=== PATIENT | female | born 1995 | race Caucasian/White ===

== ENCOUNTER → 2017-12-24 | Outpatient (REF) | payer BC | LOC: M LAB REF 12-25 13:15 | DX: J02.9 Acute pharyngitis, unspecified (principal) | CPT/HCPCS: 87081 ==

== ENCOUNTER 2018-06-24 12:23 | Emergency (ER) | payer BC, OTHER ==
[2018-06-24] MEDS: KETOROLAC 30 MG/ML VIAL (J1885) IV (13:15)
[2018-06-24] MEDS: NS 1,000 ML IV (13:15)
[2018-06-24] MEDS: ONDANSETRON 4MG/2ML VIAL (J2405) IV (13:15)
[2018-06-24 13:31] LABS: KETONE, URINE AUTO RFX NEGATIVE (NEGATIVE); LEUKOCYTE ESTERASE UR AUTO RFX NEGATIVE (NEGATIVE); NITRITE, URINE AUTO RFX NEGATIVE (NEGATIVE); RBC, URINE AUTO RFX 2 /HPF (0-3); SQUAM EPITHELIAL CELL UR AURFX 1 /HPF (0-6); WBC, URINE AUTO RFX 2 /HPF (0-3)
[2018-06-24 13:40] LABS: BASO # 0.1 10^3/uL (0.0-0.2); BASO % 0.6 % (0.0-1.0); EOS # 0.1 10^3/uL (0.0-0.50); EOS % 1.3 % (0.0-3.0); HEMATOCRIT 40.5 % (36.0-47.0); HEMOGLOBIN 13.3 g/dl (12.0-15.5); IMMATURE GRANULOCYTE % 0.5 % (0-3.0); LYMPH # 3.6 10^3/uL (1.5-6.5); LYMPH % 32.3 % (24.0-44.0); MEAN CORPUSCULAR HEMOGLOBIN 28.2 pg (27.0-33.0); MEAN CORPUSCULAR HGB CONC 32.8 g/dl (32.0-36.5); MEAN CORPUSCULAR VOLUME 85.8 fl (80.0-96.0); MONO # 0.7 10^3/uL (0.0-0.8); MONO % 5.9 % (0.0-5.0); NEUTROPHILS # 6.6 10^3/uL (1.8-7.7); NEUTROPHILS % 59.4 % (36.0-66.0); PLATELET COUNT, AUTOMATED 452 10^3/uL (150-450); RED BLOOD COUNT 4.72 10^6/uL (4.00-5.40); RED CELL DISTRIBUTION WIDTH 12.6 % (11.5-14.5); WHITE BLOOD COUNT 11.1 10^3/uL (4.0-10.0)
[2018-06-24 14:09] LABS: ALBUMIN 3.7 GM/DL (3.2-5.2); ALBUMIN/GLOBULIN RATIO 0.97 (1.00-1.93); ALKALINE PHOSPHATASE 78 U/L (45-117); ALT/SGPT 23 U/L (12-78); AMYLASE 25 U/L (25-115); ANION GAP 6 MEQ/L (8-16); AST/SGOT 12 U/L (7-37); BILIRUBIN,DIRECT < 0.1 MG/DL (0.0-0.2); BILIRUBIN,TOTAL 0.3 MG/DL (0.2-1.0); BLOOD UREA NITROGEN 13 MG/DL (7-18); CALCIUM LEVEL 8.9 MG/DL (8.5-10.1); CARBON DIOXIDE LEVEL 27 MEQ/L (21-32); CHLORIDE LEVEL 106 MEQ/L (98-107); CREATININE FOR GFR 0.82 MG/DL (0.55-1.30); GLOMERULAR FILTRATION RATE > 60.0 (>60); GLUCOSE, FASTING 93 MG/DL (70-100); LIPASE 103 U/L (73-393); POTASSIUM SERUM 4.5 MEQ/L (3.5-5.1); SODIUM LEVEL 139 MEQ/L (136-145); TOTAL PROTEIN 7.5 GM/DL (6.4-8.2)
[2018-06-24] MEDS ORDERED: ISOVUE-370 76% 100ML VIAL (Q9967) As Ordered (14:19)
== END 2018-06-24 15:20 | disposition home or self-care (01) ==
LOC: M ED 12:23
DX: R10.11 Right upper quadrant pain (principal); R11.2 Nausea with vomiting, unspecified; K76.0 Fatty (change of) liver, not elsewhere classified; R51 Headache; Z79.899 Other long term (current) drug therapy
CPT/HCPCS: J2405

== ENCOUNTER → 2019-06-18 | Outpatient (CLI) | payer BC, OTHER ==
[~2019-06-18] MED LIST: ZONI50CA3
--- NOTE | 2019-06-18 14:34 | REP ---
MRI cervical spine: 06/18/2019. Indication: Neck pain. Comparison: None. Technique: Multiplanar short and long TR sequences of the cervical spine were obtained without IV Gadolinium. Findings: There is straightening of the cervical lordosis. No worrisome marrow or cord signal is present. The craniocervical junction is unremarkable. There are no disc herniations or areas of significant spinal canal / neural foraminal narrowing throughout the cervical spine. Impression: Straightening of the cervical lordosis which may be indicative of musculoskeletal strain injury. The study is otherwise unremarkable. Electronically Signed by Mark Flores DO 06/18/2019 02:25 P
== END ==
LOC: M PLARAD 11:24
PROVIDERS: ATTEND Psychiatry & Neurology Neurology
DX: M54.2 Cervicalgia (principal); M54.81 Occipital neuralgia; M43.8X2 Other specified deforming dorsopathies, cervical region

== ENCOUNTER → 2020-07-11 | Outpatient (REF) | payer BC, OTHER ==
[~2020-07-11] MED LIST changes: +ZONI50CA11; -ZONI50CA3
[2020-07-11 14:25] LABS: FREE T4 0.96 NG/DL (0.76-1.46); PROLACTIN 7.6 NG/ML; THYROID STIMULATING HORMONE 3.81 uIU/ML (0.358-3.740)
== END ==
LOC: M PLALAB 11:05
PROVIDERS: ATTEND Obstetrics & Gynecology
DX: N92.6 Irregular menstruation, unspecified (principal)
CPT/HCPCS: 36415; 82627; 83498; 84146; 84402; 84403; 84439; 84443; G0123

== ENCOUNTER → 2020-09-21 | Outpatient (REF) | payer OTHER ==
[2020-09-21 20:01] LABS: FREE T4 0.91 NG/DL (0.76-1.46); THYROID STIMULATING HORMONE 4.12 uIU/ML (0.358-3.740)
[2020-09-21 20:19] LABS: PROGESTERONE 0.21 NG/ML
== END ==
LOC: M SFHCWAGY 18:39
PROVIDERS: ATTEND Obstetrics & Gynecology
DX: N92.6 Irregular menstruation, unspecified (principal)

== ENCOUNTER → 2020-11-08 | Outpatient (REF) | payer BC ==
[2020-11-08 22:39] LABS: FREE T4 0.89 NG/DL (0.76-1.46); THYROID STIMULATING HORMONE 3.91 uIU/ML (0.358-3.740)
[2020-11-09 13:31] LABS: PROGESTERONE 3.92 NG/ML
== END ==
LOC: M PLALAB 12:42
PROVIDERS: ATTEND Obstetrics & Gynecology
DX: E03.9 Hypothyroidism, unspecified (principal); N97.0 Female infertility associated with anovulation

== ENCOUNTER → 2021-02-05 | Outpatient (CLI) | payer BC ==
[2021-02-05 16:33] LABS: FREE T4 0.91 NG/DL (0.76-1.46); THYROID STIMULATING HORMONE 5.5 uIU/ML (0.358-3.740)
[2021-02-05 16:36] LABS: PROGESTERONE 1.43 NG/ML
== END ==
LOC: M PLALAB 13:44
PROVIDERS: ATTEND Obstetrics & Gynecology
DX: E03.9 Hypothyroidism, unspecified (principal)

== ENCOUNTER → 2021-03-05 | Outpatient (CLI) | payer BC ==
[2021-03-05 15:55] LABS: FREE T3 3.2 PG/ML (2.2-4.0); THYROID STIMULATING HORMONE 4.55 uIU/ML (0.358-3.740)
[2021-03-05 15:58] LABS: PROGESTERONE 14.81 NG/ML
== END ==
LOC: M PLALAB 13:35
PROVIDERS: ATTEND Obstetrics & Gynecology
DX: E03.9 Hypothyroidism, unspecified (principal); N97.0 Female infertility associated with anovulation

== ENCOUNTER → 2021-08-03 | Outpatient (CLI) | payer BC | LOC: M PLALAB 13:18 | PROVIDERS: ATTEND Obstetrics & Gynecology | DX: Z34.91 Encounter for supervision of normal pregnancy, unspecified, first trimester (principal); Z3A.01 Less than 8 weeks gestation of pregnancy ==

== ENCOUNTER → 2021-08-23 | Outpatient (CLI) | payer BC ==
[2021-08-23 15:08] LABS: HEMATOCRIT 40.4 % (36.0-47.0); MEAN CORPUSCULAR HGB CONC 32.2 g/dl (32.0-36.5); MEAN CORPUSCULAR VOLUME 86.9 fl (80.0-96.0); PLATELET COUNT, AUTOMATED 467 10^3/uL (150-450); RED BLOOD COUNT 4.65 10^6/uL (4.00-5.40); WHITE BLOOD COUNT 14.7 10^3/uL (4.0-10.0)
[2021-08-23 15:25] LABS: TOTAL PROTEIN,RANDOM URINE 13.1 MG/DL (0.0-12.0)
[2021-08-23 15:37] LABS: ALT/SGPT 19 U/L (12-78); BILIRUBIN,TOTAL 0.2 MG/DL (0.2-1.0); GLOMERULAR FILTRATION RATE > 60.0 (>60); LDH LACTATE DEHYDROGENASE 131 U/L (84-246); URIC ACID 5.4 MG/DL (2.6-6.0)
[2021-08-23 16:06] LABS: GC DNA AMPLIFICATION NEGATIVE (NEGATIVE)
[2021-08-24 11:34] LABS: HEPATITIS C VIRUS ABY INDEX < 0.0 INDEX (<0.8)
[2021-08-24 11:35] LABS: HIV 1&2 SCREEN CENTAUR NEGATIVE (NEGATIVE)
== END ==
LOC: M PLALAB 11:06
PROVIDERS: ATTEND Obstetrics & Gynecology
DX: Z34.91 Encounter for supervision of normal pregnancy, unspecified, first trimester (principal)

== ENCOUNTER → 2021-09-03 | Outpatient (CLI) | payer BC ==
[2021-09-03 11:08] LABS: FREE T4 1.05 NG/DL (0.76-1.46); THYROID STIMULATING HORMONE 3.58 uIU/ML (0.358-3.740)
== END ==
LOC: M PLALAB 08:02
PROVIDERS: ATTEND Obstetrics & Gynecology
DX: Z34.91 Encounter for supervision of normal pregnancy, unspecified, first trimester (principal)

== ENCOUNTER → 2021-09-19 | Outpatient (CLI) | payer BC | LOC: M LAB 07:01 | PROVIDERS: ATTEND Obstetrics & Gynecology | DX: Z34.91 Encounter for supervision of normal pregnancy, unspecified, first trimester (principal); Z3A.00 Weeks of gestation of pregnancy not specified ==

== ENCOUNTER → 2021-11-12 | Outpatient (CLI) | payer BC | LOC: M WHC 14:43 | PROVIDERS: ATTEND Specialist | DX: Z34.02 Encounter for supervision of normal first pregnancy, second trimester (principal); Z3A.19 19 weeks gestation of pregnancy ==

== ENCOUNTER → 2021-12-11 | Outpatient (CLI) | payer BC | LOC: M WHC 14:39 | PROVIDERS: ATTEND Obstetrics & Gynecology | DX: Z36.2 Encounter for other antenatal screening follow-up (principal) ==

== ENCOUNTER 2022-01-03 16:36 | Outpatient (CLI) | payer BC ==
[~2022-01-03] VITALS: Ht 157.5 cm; Wt 154.4 kg
[2022-01-03 17:09] VITALS: BP 163/82
[2022-01-03] MEDS ORDERED: FAMO20TA5 PO (17:20)
[2022-01-03] MEDS ORDERED: ENOX40IN3 SC (17:20)
[2022-01-03] MEDS ORDERED: PRENTAB9 PO (17:20)
[2022-01-03] MEDS ORDERED: HYDR200T3 PO (17:20)
[2022-01-03 17:33] VITALS: BP 146/87
[2022-01-03 19:20] VITALS: BP 166/94
[2022-01-03 20:24] VITALS: BP 122/62
[2022-01-04 00:23] LABS: GC DNA AMPLIFICATION NEGATIVE (NEGATIVE)
== END 2022-01-03 21:03 | disposition home or self-care (01) ==
LOC: M LDO 16:36
PROVIDERS: ATTEND Obstetrics & Gynecology
DX: O26.892 Other specified pregnancy related conditions, second trimester (principal); R10.2 Pelvic and perineal pain; R25.2 Cramp and spasm; O99.282 Endocrine, nutritional and metabolic diseases complicating pregnancy, second trimester; E03.9 Hypothyroidism, unspecified; Z3A.26 26 weeks gestation of pregnancy
CPT/HCPCS: 59025; 87810; 87850; G0378; G0463

== ENCOUNTER → 2022-02-06 | Outpatient (CLI) | payer BC ==
[~2022-02-06] MED LIST changes: +ENOX40IN3 SC; +FAMO20TA5 PO; +HYDR200T3 PO; +PRENTAB9 PO
[2022-02-06 15:44] LABS: HEMOGLOBIN 11.1 g/dl (12.0-15.5); MEAN CORPUSCULAR HEMOGLOBIN 26.7 pg (27.0-33.0); MEAN CORPUSCULAR HGB CONC 31.7 g/dl (32.0-36.5); MEAN CORPUSCULAR VOLUME 84.3 fl (80.0-96.0); PLATELET COUNT, AUTOMATED 372 10^3/uL (150-450); RED BLOOD COUNT 4.15 10^6/uL (4.00-5.40); WHITE BLOOD COUNT 13.2 10^3/uL (4.0-10.0)
== END ==
LOC: M PLALAB 13:19
PROVIDERS: ATTEND Obstetrics & Gynecology
DX: O99.891 Other specified diseases and conditions complicating pregnancy (principal)

== ENCOUNTER → 2022-02-13 | Outpatient (CLI) | payer BC | LOC: M WHC 08:08 | PROVIDERS: ATTEND Obstetrics & Gynecology | DX: O26.893 Other specified pregnancy related conditions, third trimester (principal); M32.9 Systemic lupus erythematosus, unspecified; Z3A.33 33 weeks gestation of pregnancy ==

== ENCOUNTER → 2022-02-26 | Outpatient (CLI) | payer BC ==
[2022-02-26 13:02] LABS: HEMATOCRIT 36.7 % (36.0-47.0); HEMOGLOBIN 11.7 g/dl (12.0-15.5); MEAN CORPUSCULAR HEMOGLOBIN 26.3 pg (27.0-33.0); MEAN CORPUSCULAR HGB CONC 31.9 g/dl (32.0-36.5); MEAN CORPUSCULAR VOLUME 82.5 fl (80.0-96.0); PLATELET COUNT, AUTOMATED 312 10^3/uL (150-450); RED BLOOD COUNT 4.45 10^6/uL (4.00-5.40); WHITE BLOOD COUNT 13.4 10^3/uL (4.0-10.0)
[2022-02-26 14:26] LABS: ALT/SGPT 9 U/L (12-78); BILIRUBIN,TOTAL 0.2 MG/DL (0.2-1.0); CREATININE FOR GFR 0.56 MG/DL (0.55-1.30); GLOMERULAR FILTRATION RATE > 60.0 (>60); LDH LACTATE DEHYDROGENASE 144 U/L (84-246); URIC ACID 4.2 MG/DL (2.6-6.0)
[2022-02-26 14:30] LABS: TOTAL PROTEIN,RANDOM URINE 19.7 MG/DL (0.0-12.0)
== END ==
LOC: M PLALAB 11:51
PROVIDERS: ATTEND Obstetrics & Gynecology
DX: I10 Essential (primary) hypertension (principal)

== ENCOUNTER 2022-03-13 13:55 | Outpatient (CLI) | payer BC ==
[~2022-03-13] VITALS: Ht 172.7 cm; Wt 156.7 kg
[2022-03-13] MEDS ORDERED: HOME MED LIST COMPLETE! XX SCH (14:15)
[2022-03-13 14:42] VITALS: BP 108/64
[2022-03-13 15:18] VITALS: BP 114/59
[2022-03-13 15:23] VITALS: BP 136/78
[2022-03-13 15:51] VITALS: BP 121/72
[2022-03-13] MEDS ORDERED: BETAMETHASONE SOLUSPAN 6MG/ML 5ML VIAL (J0702 PER 3MG) IM SCH (15:55)
[2022-03-13 16:00] LABS: HEMATOCRIT 32.8 % (36.0-47.0); HEMOGLOBIN 10.5 g/dl (12.0-15.5); MEAN CORPUSCULAR VOLUME 84.3 fl (80.0-96.0); PLATELET COUNT, AUTOMATED 334 10^3/uL (150-450); RED BLOOD COUNT 3.89 10^6/uL (4.00-5.40); WHITE BLOOD COUNT 9.5 10^3/uL (4.0-10.0)
[2022-03-13 16:31] LABS: ALT/SGPT 12 U/L (12-78); BILIRUBIN,TOTAL 0.2 MG/DL (0.2-1.0); CREATININE FOR GFR 0.56 MG/DL (0.55-1.30); GLOMERULAR FILTRATION RATE > 60.0 (>60); LDH LACTATE DEHYDROGENASE 122 U/L (84-246); URIC ACID 5.7 MG/DL (2.6-6.0)
[2022-03-13] MEDS ORDERED: ACETAMINOPHEN 500 MG TAB PO PRN (16:45)
[2022-03-13 17:02] LABS: TOTAL PROTEIN,RANDOM URINE 12.4 MG/DL (0.0-12.0)
== END 2022-03-13 17:45 | disposition home or self-care (01) ==
LOC: M LDO 13:55
PROVIDERS: ATTEND Advanced Practice Midwife
DX: O16.3 Unspecified maternal hypertension, third trimester (principal); O99.113 Other diseases of the blood and blood-forming organs and certain disorders involving the immune mechanism complicating pregnancy, third trimester; O99.283 Endocrine, nutritional and metabolic diseases complicating pregnancy, third trimester; O99.713 Diseases of the skin and subcutaneous tissue complicating pregnancy, third trimester; E03.9 Hypothyroidism, unspecified; L93.2 Other local lupus erythematosus; D68.61 Antiphospholipid syndrome; Z3A.36 36 weeks gestation of pregnancy
CPT/HCPCS: 36415; 59025; 82247; 82565; 82570; 83615; 84156; 84450; 84460; 84550; 85027; 87081; 96372; G0378; G0463; J0702

== ENCOUNTER 2022-03-14 16:21 | Outpatient (CLI) | payer BC ==
[~2022-03-14] VITALS: Ht 172.7 cm; Wt 157.8 kg
[2022-03-14 16:53] VITALS: BP 124/58
[2022-03-14] MEDS ORDERED: BETAMETHASONE SOLUSPAN 6MG/ML 5ML VIAL (J0702 PER 3MG) IM ONE (17:10)
[2022-03-14] MEDS ORDERED: HOME MED LIST COMPLETE! XX SCH (17:10)
[2022-03-14 17:12] VITALS: BP_SYST 143; BP_SYST 144; BP_DIAS 84; BP_DIAS 90
== END 2022-03-14 17:55 | disposition home or self-care (01) ==
LOC: M LDO 16:21
PROVIDERS: ATTEND Specialist
DX: O13.3 Gestational [pregnancy-induced] hypertension without significant proteinuria, third trimester (principal); O26.893 Other specified pregnancy related conditions, third trimester; M32.9 Systemic lupus erythematosus, unspecified; Z3A.36 36 weeks gestation of pregnancy
CPT/HCPCS: 59025; 96372; G0378; G0463; J0702

== ENCOUNTER 2022-03-17 15:11 | Inpatient (IN) | payer BC ==
[~2022-03-17] VITALS: Ht 172.7 cm; Wt 159.0 kg
[2022-03-17] MEDS ORDERED: HOME MED LIST COMPLETE! XX SCH (15:40)
[2022-03-17 16:03] VITALS: BP 149/73
[2022-03-17 16:13] LABS: HEMOGLOBIN 10.8 g/dl (12.0-15.5); MEAN CORPUSCULAR HEMOGLOBIN 27.3 pg (27.0-33.0); MEAN CORPUSCULAR HGB CONC 32.7 g/dl (32.0-36.5); MEAN CORPUSCULAR VOLUME 83.5 fl (80.0-96.0); PLATELET COUNT, AUTOMATED 344 10^3/uL (150-450); RED BLOOD COUNT 3.95 10^6/uL (4.00-5.40); WHITE BLOOD COUNT 13.5 10^3/uL (4.0-10.0)
[2022-03-17] MEDS ORDERED: LIDOCAINE 1% MDV 20ML VIAL INFIL PRN (16:15)
[2022-03-17] MEDS ORDERED: TRANEXAMIC ACID INJection 1,000 MG in NS 100 ML IV PRN (16:15)
[2022-03-17] MEDS ORDERED: CARBOPROST TROMETHAMINE 250 MCG/ML AMP IM PRN (16:15)
[2022-03-17] MEDS: miSOPROStol 50MCG 1/2 TABLET PO SCH ×2 (16:57→22:17)
[2022-03-17 17:02] VITALS: BP 130/62
[2022-03-17 20:26] VITALS: BP 114/58
[2022-03-17 21:56] VITALS: BP 120/56
[2022-03-17 22:18] VITALS: BP 125/59
[2022-03-17 23:22] VITALS: BP 144/64
[2022-03-18] VITALS (30 sets, daily range): BP systolic 121–184; BP diastolic 58–113
[2022-03-18] MEDS: miSOPROStol 50MCG 1/2 TABLET PO SCH ×3 (02:40→11:25)
[2022-03-18] MEDS ORDERED: OXYTOCIN DRIP 30 UNITS in IV 1 EA IV SCH ×2 (13:40→22:20)
[2022-03-18] MEDS ORDERED: LR 1,000 ML IV SCH ×2 (13:40→22:35)
[2022-03-18 14:22] LABS: HEMATOCRIT 34.2 % (36.0-47.0); MEAN CORPUSCULAR HEMOGLOBIN 27.2 pg (27.0-33.0); MEAN CORPUSCULAR HGB CONC 32.2 g/dl (32.0-36.5); MEAN CORPUSCULAR VOLUME 84.4 fl (80.0-96.0); PLATELET COUNT, AUTOMATED 340 10^3/uL (150-450); RED BLOOD COUNT 4.05 10^6/uL (4.00-5.40); WHITE BLOOD COUNT 14.6 10^3/uL (4.0-10.0)
[2022-03-18 14:58] LABS: ALBUMIN 2.4 GM/DL (3.2-5.2); ALT/SGPT 15 U/L (12-78); BILIRUBIN,TOTAL 0.2 MG/DL (0.2-1.0); BLOOD UREA NITROGEN 8 MG/DL (7-18); CALCIUM LEVEL 8.8 MG/DL (8.5-10.1); CARBON DIOXIDE LEVEL 21 MEQ/L (21-32); CHLORIDE LEVEL 103 MEQ/L (98-107); GLOMERULAR FILTRATION RATE > 60.0 (>60); GLUCOSE, FASTING 81 MG/DL (70-100); POTASSIUM SERUM 4.1 MEQ/L (3.5-5.1); SODIUM LEVEL 133 MEQ/L (136-145); TOTAL PROTEIN 5.8 GM/DL (6.4-8.2)
[2022-03-18] MEDS ORDERED: EPIDURAL/PCA KEYS XX PRN (16:55)
[2022-03-18] MEDS ORDERED: ePHEDrine SULFATE 25 MG/5 ML(5MG/ML) SYRINGE IVP PRN (16:55)
[2022-03-18] MEDS ORDERED: diphenhydrAMINE 50MG/ML VIAL (J1200) IV PRN ×2 (16:55→22:35)
[2022-03-18] MEDS ORDERED: ONDANSETRON 4MG 2ML VIAL IV PRN ×3 (16:55→22:35)
[2022-03-18] MEDS ORDERED: NALOXONE INJ 0.4MG/1ML VIAL (J2310 PER 1MG) IV PRN ×3 (16:55→22:35)
[2022-03-18] MEDS ORDERED: FENTANYL/ROPIVACAINE/NACL BAG 100 ML EPIDURAL SCH (16:55)
[2022-03-18] MEDS ORDERED: LR 500 ML IV PRN (16:55)
[2022-03-18] MEDS ORDERED: dexameTHASONE 4 MG/ML 1ML VIAL (J1100 PER 1MG) As Ordered ONE (19:52)
[2022-03-18] MEDS ORDERED: ONDANSETRON 4MG 2ML VIAL As Ordered ONE (19:52)
[2022-03-18] MEDS ORDERED: KETOROLAC 60MG 2ML VIAL As Ordered ONE (19:52)
[2022-03-18] MEDS ORDERED: OXYTOCIN INJ 10 UNITS/ML VIAL (J2590) As Ordered ONE ×2 (19:52→21:50)
[2022-03-18] MEDS ORDERED: LIDOCAINE 2% W/EPINEPHRINE 20ML VIAL **PRES FREE As Ordered ONE (19:52)
[2022-03-18] MEDS ORDERED: MORPHINE PRES-FREE INJ 10 MG/10 ML VIAL As Ordered ONE (19:53)
[2022-03-18] MEDS ORDERED: BICITRA 30ML SOLN UDC PO ONE (20:00)
[2022-03-18] MEDS ORDERED: ceFAZolin SOD 3 GM IV Place Holder IV ONE (20:00)
[2022-03-18] MEDS ORDERED: AZITHROMYCIN INJ 500 MG, VIAL MATE ADAPTER 1 EACH in NS 250 ML IV ONE (20:00)
[2022-03-18] MEDS ORDERED: ceFAZolin SOD 2 GM in IV 1 EA IV ONE (20:10)
[2022-03-18] MEDS ORDERED: ceFAZolin SOD 1 GM in D5W MINI-BAG PLUS 50 ML IV ONE (20:10)
[2022-03-18] MEDS ORDERED: BUPIVACAINE HCL 0.25% 30ML VIAL As Ordered ONE (21:15)
[2022-03-18 21:20] LABS: CORD GAS ABE A -9.3; CORD GAS O2 SAT A 58.7 %; CORD GAS PCO2 A 72.8 mmHg; CORD GAS PH A 7.098 UNITS; CORD GAS PO2 A 31.6 mmHg; CORD GAS SBC A 16.3 MEQ/L; CORD GAS TCO2 A 24.2 MEQ/L
[2022-03-18 21:21] LABS: CORD GAS HCO3 V 24.6 MEQ/L; CORD GAS O2 SAT V 36.6 %; CORD GAS PCO2 V 53.6 mmHg; CORD GAS PH V 7.279 UNITS; CORD GAS PO2 V 18.2 mmHg; CORD GAS SBC V 20.5 MEQ/L; CORD GAS TCO2 V 26.2 MEQ/L
[2022-03-18] MEDS ORDERED: SIMETHICONE 80MG CHEW TAB PO PRN (22:20)
[2022-03-18] MEDS ORDERED: ANUSOL HC CREAM 30GM TOP PRN (22:20)
[2022-03-18] MEDS ORDERED: PERCOCET 5MG/325MG TAB PO PRN ×2 (22:20→22:35)
[2022-03-18] MEDS ORDERED: MORPHINE 4 MG/ML 1ML VIAL/SYRINGE IV PRN (22:20)
[2022-03-18] MEDS ORDERED: MOM 30ML SUSPENSION UDC PO PRN (22:20)
[2022-03-18] MEDS ORDERED: RHOGAM 300 MCG (1500 IU) INJ (J2790) IM SCH (22:20)
[2022-03-18] MEDS ORDERED: fentaNYL 100 MCG/2 ML INJECTION IV PRN (22:35)
[2022-03-18] MEDS ORDERED: METOCLOPRAMIDE INJ 10MG/2ML VIAL (J2765 PER 1) IV PRN ×2 (22:35)
[2022-03-18] MEDS ORDERED: **NOTE PATIENT COMMENT** MISC XX SCH (22:35)
[2022-03-18] MEDS: SLF 3 ML SYR IV SCH (23:00)
[2022-03-18] MEDS ORDERED: OXYTOCIN 30 UNITS IN 0.9% NaCl 500ML IV BAG (J2590) As Ordered ONE (23:09)
[2022-03-19] VITALS (12 sets, daily range): BP systolic 123–149; BP diastolic 58–80
[2022-03-19] MEDS ORDERED: UNRESOLVED CLARIFICATION ENTRY XX SCH (00:01)
[2022-03-19] MEDS: LR 1,000 ML IV SCH ×4 (02:30→23:04)
[2022-03-19] MEDS: KETOROLAC 30 MG/ML 1ML VIAL IV SCH ×3 (02:31→14:12)
[2022-03-19 08:16] LABS: HEMATOCRIT 30.7 % (36.0-47.0); HEMOGLOBIN 9.8 g/dl (12.0-15.5); MEAN CORPUSCULAR HGB CONC 31.9 g/dl (32.0-36.5); MEAN CORPUSCULAR VOLUME 84.6 fl (80.0-96.0); PLATELET COUNT, AUTOMATED 333 10^3/uL (150-450); RED BLOOD COUNT 3.63 10^6/uL (4.00-5.40); WHITE BLOOD COUNT 18.2 10^3/uL (4.0-10.0)
[2022-03-19] MEDS: PRENATAL VITAMINS CHEWABLE TABLET PO SCH (08:24)
[2022-03-19] MEDS: DOCUSATE SODIUM 100MG CAPSULE PO SCH ×2 (08:24→21:26)
[2022-03-19] MEDS: SLF 3 ML SYR IV SCH ×2 (09:59→15:30)
[2022-03-19] MEDS ORDERED: ENOXAPARIN 80MG/0.8ML SYRINGE (J1650 PER 10MG) SQ SCH (11:00)
[2022-03-19] MEDS: PERCOCET 5MG/325MG TAB PO PRN ×3 (20:28→21:23)
[2022-03-19] MEDS: IBUPROFEN 800 MG TAB PO SCH (21:24)
[2022-03-20 02:00] VITALS: BP 132/60
[2022-03-20] MEDS: IBUPROFEN 800 MG TAB PO SCH (05:36)
[2022-03-20 06:00] VITALS: BP 124/68
[2022-03-20] MEDS: DOCUSATE SODIUM 100MG CAPSULE PO SCH (07:24)
[2022-03-20] MEDS: PRENATAL VITAMINS CHEWABLE TABLET PO SCH (07:25)
[2022-03-20] MEDS: PERCOCET 5MG/325MG TAB PO PRN (07:25)
[2022-03-20] MEDS ORDERED: MEASLES,MUMPS,RUBELLA VACCINE INJ (MMR-II) (90707) SC.IMMUN ONE (09:00)
[2022-03-20] MEDS ORDERED: PERCOCET PO (10:06)
[2022-03-20] MEDS ORDERED: IBUP80TA PO (10:06)
[2022-03-20] MEDS ORDERED: COLA100C5 PO (10:06)
== END 2022-03-20 11:40 | disposition home or self-care (01) | DRG 540 ==
LOC: M LDI 15:11 → M OBS 03-19 00:12
PROVIDERS: ADMIT Obstetrics & Gynecology; ATTEND Obstetrics & Gynecology
PROC: 3E0P7GC Introduction of Other Therapeutic Substance into Female Reproductive, Via Natural or Artificial Opening (ICD-10-PCS; 2022-03-17)
PROC: 10D00Z1 Extraction of Products of Conception, Low, Open Approach (ICD-10-PCS; principal; 2022-03-18 20:01)
DX: O13.4 Gestational [pregnancy-induced] hypertension without significant proteinuria, complicating childbirth (principal); Z3A.37 37 weeks gestation of pregnancy; Z37.0 Single live birth; O26.893 Other specified pregnancy related conditions, third trimester; M32.9 Systemic lupus erythematosus, unspecified; Z79.899 Other long term (current) drug therapy; O76 Abnormality in fetal heart rate and rhythm complicating labor and delivery

== ENCOUNTER → 2023-03-24 | Outpatient (REF) | payer BC ==
[~2023-03-24] MED LIST changes: +COLA100C5 PO; -HYDR200T3 PO; +HYDR200T46 PO; +IBUP80TA PO; +PERCOCET PO
[2023-03-24 15:09] LABS: GC DNA AMPLIFICATION NEGATIVE (NEGATIVE)
== END ==
LOC: M PLALAB 11:48
PROVIDERS: ATTEND Obstetrics & Gynecology
DX: Z12.4 Encounter for screening for malignant neoplasm of cervix (principal); Z20.2 Contact with and (suspected) exposure to infections with a predominantly sexual mode of transmission
CPT/HCPCS: 87661; 87810; 87850; G0123

== ENCOUNTER → 2023-03-24 | Outpatient (CLI) | payer BC ==
[2023-03-24 14:38] LABS: HIV 1&2 SCREEN NEGATIVE (NEGATIVE)
[2023-03-24 14:47] LABS: HEPATITIS B CORE ANTIBODY IGM NEGATIVE (NEGATIVE); HEPATITIS C VIRUS ABY INDEX 0.17 INDEX (<0.8)
== END ==
LOC: M PLALAB 12:08
PROVIDERS: ATTEND Obstetrics & Gynecology
DX: Z20.2 Contact with and (suspected) exposure to infections with a predominantly sexual mode of transmission (principal)

== ENCOUNTER → 2024-05-21 | Outpatient (REF) | payer OTHER ==
[2024-05-21 14:09] LABS: TOTAL PROTEIN,RANDOM URINE 7.7 MG/DL (0.0-14.0)
[2024-05-21 14:12] LABS: CREATININE,RANDOM URINE 128.3 MG/DL
[2024-05-21 14:18] LABS: AMORPHOUS SEDIMENT SMALL (NEGATIVE); APPEARANCE, URINE TURBID (CLEAR); BACTERIA, URINE AUTO NEGATIVE (NEGATIVE); BILIRUBIN, URINE AUTO NEGATIVE (NEGATIVE); BLOOD, URINE BLOOD NEGATIVE (NEGATIVE); COLOR, URINE YELLOW (YELLOW); GLUCOSE, URINE (UA) AUTO NEGATIVE (NEGATIVE); KETONE, URINE AUTO NEGATIVE (NEGATIVE); LEUKOCYTE ESTERASE, URINE AUTO TRACE (NEGATIVE); NITRITE, URINE AUTO NEGATIVE (NEGATIVE); PROTEIN, URINE AUTO NEGATIVE (NEGATIVE); RBC, URINE AUTO 0 /HPF (0-3); SPECIFIC GRAVITY URINE AUTO 1.023 (1.002-1.035); SQUAMOUS EPITHELIAL CELL UR AU 1 /HPF (0-6); UROBILINOGEN, URINE AUTO 0.2 mg/dL (0.0-2.0); WBC, URINE AUTO 0 /HPF (0-3)
[2024-05-21 15:05] LABS: BASO # 0.1 10^3/uL (0.0-0.2); BASO % 0.5 % (0.0-1.0); EOS # 0.1 10^3/uL (0.0-0.5); EOS % 0.7 % (0.0-3.0); HEMATOCRIT 43.6 % (36.0-47.0); HEMOGLOBIN 14.2 g/dl (12.0-15.5); LYMPH # 3.4 10^3/uL (1.5-5.0); LYMPH % 30.1 % (24.0-44.0); MEAN CORPUSCULAR HEMOGLOBIN 28.7 pg (27.0-33.0); MEAN CORPUSCULAR HGB CONC 32.6 g/dl (32.0-36.5); MEAN CORPUSCULAR VOLUME 88.1 fl (80.0-96.0); MONO # 0.6 10^3/uL (0.0-0.8); MONO % 5.1 % (2.0-8.0); NEUTROPHILS # 7.1 10^3/uL (1.5-8.5); NEUTROPHILS % 63.1 % (36.0-66.0); PLATELET COUNT, AUTOMATED 455 10^3/uL (150-450); RED BLOOD COUNT 4.95 10^6/uL (4.00-5.40); WHITE BLOOD COUNT 11.3 10^3/uL (4.0-10.0)
[2024-05-21 15:13] LABS: ERYTHROCYTE SEDIMENTATION RATE 64 mm/hr (0-20)
[2024-05-21 15:31] LABS: ALBUMIN 4.1 G/DL (3.2-5.2); ALKALINE PHOSPHATASE 85 U/L (35-104); ALT/SGPT 23 U/L (7.0-40); AST/SGOT 10 U/L (<34); BILIRUBIN,DIRECT 0.1 MG/DL (<0.4); BILIRUBIN,TOTAL 0.3 MG/DL (0.3-1.2); BLOOD UREA NITROGEN 14 MG/DL (9-23); CALCIUM LEVEL 9.8 MG/DL (8.5-10.1); CARBON DIOXIDE LEVEL 26 MMOL/L (20-31); CHLORIDE LEVEL 107 MMOL/L (98-107); CREATININE FOR GFR 0.67 MG/DL (0.55-1.30); GLOMERULAR FILTRATION RATE > 60.0 (>60); GLUCOSE, FASTING 81 MG/DL (60-100); HEPATITIS B SURFACE ANTIBODY NEGATIVE (POSITIVE); POTASSIUM SERUM 4.5 MMOL/L (3.5-5.1); SODIUM LEVEL 139 MMOL/L (136-145); TOTAL PROTEIN 8.2 G/DL (5.7-8.2)
[2024-05-21 15:32] LABS: COMPLEMENT C3 196.3 MG/DL (82.0-160.0); COMPLEMENT C4 40.3 MG/DL (12-36); IMMUNOGLOBULIN A 196.7 MG/DL (40-350); IMMUNOGLOBULIN G 1335 MG/DL (650-1600)
[2024-05-21 15:33] LABS: TOTAL 25(OH) VITAMIN D 11.6 NG/ML (20.0-100.0)
[2024-05-21 15:43] LABS: HEPATITIS B SURFACE ANTIGEN NEGATIVE (NEGATIVE)
[2024-05-21 16:04] LABS: HEPATITIS C VIRUS ABY INDEX 0.06 INDEX (<0.8)
[2024-05-23 03:47] LABS: T P ELECTROPHORESIS SO 8.2 g/dL (6.1-8.1)
[2024-05-23 07:45] LABS: HEPATITIS B CORE ANTIBODY IGG NON-REACTIVE (NON-REACTIVE)
[2024-05-25 09:13] LABS: ALBUMIN SPEP 4.5 g/dL (3.8-4.8); ALPHA-1-GLOBULINS SO 0.4 g/dL (0.2-0.3); ALPHA-2-GLOBULINS SO 0.9 g/dL (0.5-0.9); BETA 2 GLOBULIN 0.5 g/dL (0.2-0.5); BETA-GLOBULIN SO 0.5 g/dL (0.4-0.6); GAMMA GLOBULINS SO 1.4 g/dL (0.8-1.7)
[2024-05-25 13:08] LABS: QuantiFERON-TB Gold Plus NEGATIVE (NEGATIVE)
[2024-05-26 17:58] LABS: COMPLEMENT TOTAL (CH50) 59 U/mL (31-60)
[2024-05-27 17:27] LABS: Hexagonal Phase Phospholipid Negative (Negative); PTT-LA 43 sec (<=40); dRVVT 44 sec (<=45)
== END ==
LOC: M SFHCRHEU 10:23
PROVIDERS: ATTEND Internal Medicine
DX: R76.8 Other specified abnormal immunological findings in serum (principal); M32.9 Systemic lupus erythematosus, unspecified; Z11.59 Encounter for screening for other viral diseases

== ENCOUNTER → 2025-06-01 | Outpatient (REF) | payer OTHER ==
[2025-06-03 15:57] LABS: HPV APTIMA Not Detected (Not Detected)
== END ==
LOC: M PLALAB 11:54
PROVIDERS: ATTEND Physician Assistant
DX: Z12.4 Encounter for screening for malignant neoplasm of cervix (principal)
CPT/HCPCS: 87624; G0123